=== PATIENT | female | born 1985 | race Caucasian/White ===

== ENCOUNTER 2018-03-19 12:10 | Inpatient (IN) | payer OTHER ==
[2018-03-19] MEDS ORDERED: NACL 0.9% 3 ML SYG IV (14:30)
[2018-03-19] MEDS ORDERED: morphine 2 MG INJ IV (14:30)
[2018-03-19] MEDS ORDERED: MAGNESIUM HYDROXIDE 30ML CUP PO (14:30)
[2018-03-19] MEDS ORDERED: BISACODYL 10 MG SUPP PR (14:30)
[2018-03-19] MEDS ORDERED: ACETAMINOPHEN 325 MG TAB PO (14:30)
[2018-03-19] MEDS ORDERED: DOCUSATE SODIUM 100 MG CAP PO (14:30)
[2018-03-19] MEDS ORDERED: ONDANSETRON 4 MG INJ IV (14:30)
[2018-03-19] MEDS: LEVETIRACETAM 500 MG TAB PO ×2 (14:58→20:14)
[2018-03-19] MEDS: DEXAMETHASONE 4 MG/ML 1 ML INJ IV ×2 (15:02→19:34)
[2018-03-19] MEDS: LETROZOLE 2.5 MG TAB PO (15:44)
[2018-03-19 16:52] LABS: ANION GAP 19 (8-16); BLOOD UREA NITROGEN 14 mg/dl (7-20); CALCIUM 9.7 mg/dl (8.4-10.2); CARBON DIOXIDE 21 mmol/L (21-31); CHLORIDE 104 mmol/L (97-110); GLUCOSE 207 mg/dl (70-220); MAGNESIUM 1.7 mg/dl (1.7-2.5); PHOSPHORUS 4.3 mg/dl (2.5-4.9); POTASSIUM 3.9 mmol/L (3.5-5.1); SODIUM 140 mmol/L (135-144)
[2018-03-19 17:21] LABS: CARCINOEMBRYONIC ANTIGEN 1.1 ng/ml (0.0-5.0)
[2018-03-19] MEDS: FAMOTIDINE 20 MG TAB PO (20:14)
[2018-03-20] MEDS: DEXAMETHASONE 4 MG/ML 1 ML INJ IV ×4 (02:38→17:14)
[2018-03-20 06:06] LABS: WHITE BLOOD COUNT 5.6 10^3/ul (4.8-10.8)
[2018-03-20 06:06] LABS: HEMATOCRIT 30.9 % (37.0-47.0); HEMOGLOBIN 11.2 g/dl (12.0-16.0); MEAN CORPUSCULAR HEMOGLOBIN 33.1 pg (29.0-33.0); MEAN CORPUSCULAR HGB CONC 36.2 g/dl (32.0-37.0); MEAN CORPUSCULAR VOLUME 91.4 fl (82.0-101.0); MEAN PLATELET VOLUME 8.5 fl (7.4-10.4); PLATELET COUNT 169 10^3/UL (140-415); RED BLOOD COUNT 3.38 10^6/ul (4.20-5.40); RED CELL DISTRIBUTION WIDTH 14.8 % (11.5-14.5)
[2018-03-20 06:29] LABS: ALANINE AMINOTRANSFERASE 33 IU/L (13-69); ALBUMIN/GLOBULIN RATIO 0.95; ALKALINE PHOSPHATASE 58 IU/L (42-121); ANION GAP 14 (8-16); ASPARTATE AMINO TRANSFERASE 32 IU/L (15-46); BILIRUBIN,INDIRECT 1.1 mg/dl (0-1.1); BILIRUBIN,TOTAL 1.1 mg/dl (0.2-1.3); BLOOD UREA NITROGEN 14 mg/dl (7-20); CALCIUM 9.8 mg/dl (8.4-10.2); CARBON DIOXIDE 24 mmol/L (21-31); CHLORIDE 106 mmol/L (97-110); CREATININE 0.67 mg/dl (0.44-1.00); GLUCOSE 143 mg/dl (70-220); MAGNESIUM 1.8 mg/dl (1.7-2.5); POTASSIUM 4.4 mmol/L (3.5-5.1); SODIUM 140 mmol/L (135-144); TOTAL PROTEIN 8.2 g/dl (6.1-8.1)
[2018-03-20 06:40] LABS: ADD MAN DIFF? YES; POSITIVE DIFF @See below
[2018-03-20] MEDS: FAMOTIDINE 20 MG TAB PO (09:20)
[2018-03-20] MEDS: LEVETIRACETAM 500 MG TAB PO (09:20)
[2018-03-20] MEDS: LETROZOLE 2.5 MG TAB PO (09:22)
[2018-03-20 09:41] LABS: ANISOCYTOSIS 1+ (0-0); BAND NEUTROPHILS #M 0.2 10^3/ul (0.0-0.6); BAND NEUTROPHILS % (M) 5 % (0-4); BASOPHILS % (M) 1 % (0-2); ERYTHROBLAST% (NRBC) (M) 1 % (0-0); GIANT THROMBO% (M) 1 % (0-0); MONOCYTE #M 0.1 10^3/ul (0.3-0.9); MONOCYTES % (M) 3 % (0-11); PLATELET ESTIMATE NORMAL; REACTIVE LYMPHOCYTES #M 0.1 10^3/ul (0.0-0.0); REACTIVE LYMPHOCYTES% (M) 2 % (0-0)
[2018-03-20 10:06] LABS: LYMPHOCYTES #M 0.5 10^3/ul (0.8-2.9); LYMPHOCYTES % (M) 10 % (15-51); SEG NEUT #M 4.9 10^3/ul (1.6-7.5); SEGMENTED NEUTROPHILS (M) % 87 % (39-77); SMUDGE%M 1 % (0-0)
[2018-03-20] MEDS: IOHEXOL 300MG/ML 150 ML BTL (20:19)
[2018-03-20] MEDS: SOD CHLORIDE 0.9% 100 ML (20:19)
[2018-03-23 00:37] LABS: CANCER ANTIGEN 15-3 23 U/mL (<32)
[2018-03-23 12:48] LABS: CA27.29 38 U/mL (<38)
== END 2018-03-20 20:51 | disposition home or self-care (01) | DRG 54 ==
LOC: 6WM 12:10
PROVIDERS: Internal Medicine
DX: C79.31 Secondary malignant neoplasm of brain (principal); G93.6 Cerebral edema; G81.91 Hemiplegia, unspecified affecting right dominant side; R47.01 Aphasia; C79.81 Secondary malignant neoplasm of breast; C50.919 Malignant neoplasm of unspecified site of unspecified female breast; E87.6 Hypokalemia; R29.810 Facial weakness; G40.909 Epilepsy, unspecified, not intractable, without status epilepticus
CPT/HCPCS: 70551; 70552; 71260; 74177; 80048; 80053; 82378; 83735; 84100; 84703; 85025; 86300; 97161